=== PATIENT | male | born 1955 | race Caucasian/White ===

== ENCOUNTER 2020-02-11 09:21 | Outpatient (CLI) | payer OTHER, BC, MEDICARE, SELFPAY ==
--- NOTE | 2020-02-11 09:44 | CT_ITS ---
WS: [id number] CT HEAD TECHNIQUE: Noncontrast CT of the head obtained from the skullbase to the vertex. CLINICAL INFORMATION: SYNCOPE COMPARISON: None. DLP: 992.[address] scans at [facility] use at least one of these dose optimization techniques: automat ed exposure control; mA and/or kV adjustment per patient size (includes targeted exams where dose is matched to clinical indication); or iterative reconstruction. FINDINGS: No evidence of intracranial hemorrhage or mass effect. Ventricular system and basal cisterns are murillo nt. Mild small vessel changes with mild parenchymal volume loss. No extra-axial fluid collections. No evidence of mass or mass effect. Normal bartlett-white differentiation. Paranasal sinuses and mastoid air cells are well aerated. .Normal visualized soft tissues. CT/CT head wo con* [id number] IMPRESSION: 1. No evidence of intracranial hemorrhage or mass effect. 2. Mild small vessel changes. Mild parenchymal volume loss. 3. No acute intracranial findings.
== END 2020-02-11 09:22 | disposition home or self-care (01) ==
PROVIDERS: PCP Emergency Medicine; Visit Provider Family Medicine
DX: R55 Syncope and collapse (principal)
CPT/HCPCS: 70450

== ENCOUNTER 2020-02-29 12:58 | Outpatient (CLI) | payer OTHER, BC, MEDICARE, SELFPAY ==
--- NOTE | 2020-02-29 13:21 | USCV_ITS ---
Yonatan Rivers Age: 64 Gender: M : 1955 Exam Date: 02/29/2020 13:37 Ordering Phys: Shalonda Porter MD Technologist: Yoselin Kowalski [place] [facility] [place]: DIZZ[place] Risk Factors: Previous Vascular Surgery: Right Brachial BP: / Left Brachial BP: / Right Left Velocity (cm/s) Spectral Plaque Velocity (cm/s) Spectral Plaque Syst/Diast Broadening Syst/Diast Broadening 80.60/ 21.00 Prox CCA 119.10/ 29.80 101.70/32.50 Mid CCA 100.50/ 29.80 64.90/ 20.50 Distal CCA 98.60 / 27.60 86.30/ 21.00 Prox ICA 40.20 / 15.40 54.50/ 22.50 Mid ICA 48.10 / 19.10 50.00/ 19.30 Distal ICA 45.80 / 18.30 88.70 ECA 94.70 0.54 ICA/CCA 0.48 Antegrade Vertebral Antegrade 28.20/ 11.30 cm/s 34.40/ 14.50 cm/s Tri Subclavian Tri 116.6 119.6 0 0 FINDINGS Comparison: none available. No significant elevation of systolic or diastolic velocities. Waveforms are normal. No significant amount of calcified plaque or intimal thickening identified. CONCLUSIONS Normal carotid doppler ultrasound. Dr. Megan Harris DO (Electronically Signed) Final Date: 29 February 2020 14:15 S
== END 2020-02-29 12:59 | disposition home or self-care (01) ==
LOC: RAD 13:19
PROVIDERS: PCP Emergency Medicine; Visit Provider Family Medicine
DX: R42 Dizziness and giddiness (principal)
CPT/HCPCS: 93880

== ENCOUNTER 2020-11-21 06:33 | Outpatient (CLI) | payer MEDICARE, SELFPAY ==
[2020-11-21 07:04] VITALS: BMI 29.8
--- NOTE | 2020-11-21 07:05 | NMCV_ITS ---
NM kristan perf SPECT r/s* [id number] Yonatan Rivers Age: 65 Gender: M : 1955 Exam Date: 11/21/2020 07:58 Ordering Phys: Phani Reid MD ([email or web address]) Technologist: SY Caal Exam Location: [facility] Indications: ATHEROSCLEROTIC HEART DISEASE OF [place] CORONARY ARTERY STRESS TEST Please see separate stress test report in [facility] for full findings IMAGE PROTOCOL Rest/Stress 1 Lexiscan Day Radiopharmaceutical Dose (mCi) Administration Site Administered by Rest: Tc-99m 10.8 IV SY Rush Sestamibi Stress:Tc-99m 32.6 IV SY Rush Sestamibi Rest: 21-Nov-2020 60 Discovery 630 Stress: 21-Nov-2020 30 Discovery 630 0.4mg Lexiscan. Images obtained in supine and prone position. SPECT RESULTS Technical Quality: Excellent Raw Data Analysis: Normal Image Corrections: No attenuation or motion correction applied Summed Stress Score: 35 Summed Rest Score: 29 Summed Difference Score: 7 PERFUSION FINDINGS Large area of fixed perfusion defect noted in basal to distal anterior basal to distal inferior and basal to distal inferolateral wall on both rest and stress images suggestive of old myocardial infarction versus scarring. No willi- infarct ischemia noted. FUNCTIONAL RESULTS (calculated via Gated SPECT) Stress Image LV EF (%): 32 Stress EDV (mL):185 TID: 1.09 Stress ESV (mL):126 FUNCTIONAL FINDINGS: Anterior, apical, inferior and inferolateral wall akinesis. 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 Only viable myocardium appeared to be anterolateral, basal to distal lateral and anteroseptal region. No significant ischemia noted. EKG segment will be documented separately. Phani Reid MD (Electronically Signed) Final Date: 21 November 2020 13:42 S
--- NOTE | 2020-11-21 07:05 | ECG_ITS ---
[facility] Test Date: 2020-11-21 Pat Name: Yonatan Rivers Department: Room: Gender: Male Apprentice Cosmetologist: Celestina Kistler : 1955 Requested By: Sohail Reid Order Number: [id number] Reading MD: SOHAIL REID Interpretive Statements NAME OF STUDY: LEXISCAN SESTAMIBI STRESS TEST INDICATION: Chest Pain, NOTE: Please note that this is the electrocardiogram portion of the Lexiscan/Sestamibi stress test. The perfusion scan will be documented separately. DATA: Baseline heart rate was 56 beats per minute. Baseline blood pressure was 117/78 millimeters of mercury. Target heart rate was 154. Maximum heart rate achieved was 93. which was 60 % of the predicted target heart rate. Maximum blood pressure was 117/78 millimeters of mercury. The reason for ending the test was completion of the protocol. The patient did not experience any symptoms. ELECTROCARDIOGRAM: BASELINE: Sinus bradycardia. Normal axis. Possible old anterior anterolateral wall myocardial infarction After Lexiscan injection, no ST-T changes suggestive of ischemic noted. No arrhythmia noted. CONCLUSION: Please note due to baseline abnormality of the EKG specificity and sensitivity of the EKG portion of LexiScan MIBI stress test will be low 1. EKG not suggestive of ischemia 2. Lexiscan injection unremarkable. 3. Perfusion scan will be documented separately. Electronically Signed On 11-21-2020 21:18:49 CDT by SOHAIL REID [id number]
[2020-11-21] MEDS: regadenoson 0.4 Mg/5 ml Syringe IVP (08:32)
[2020-11-21 08:33] VITALS: BP 112/74; PULSE 81
== END 2020-11-21 06:34 | disposition home or self-care (01) ==
LOC: CDL 06:44
PROVIDERS: PCP Emergency Medicine; Visit Provider Internal Medicine Cardiovascular Disease
DX: R07.9 Chest pain, unspecified (principal); R06.02 Shortness of breath; I25.10 Atherosclerotic heart disease of native coronary artery without angina pectoris
CPT/HCPCS: 78452; 93017; A9500; J2785